=== PATIENT | male | born 1960 | race Caucasian/White ===

== ENCOUNTER 2021-04-01 06:21 | Emergency (ER) | payer BC ==
[2021-04-01 06:35] VITALS: BP 152/91; PULSE 101
--- NOTE | 2021-04-01 07:00 | EDM.PDOC ---
ED HPI GENERAL MEDICAL PROBLEM - General Chief Complaint: Gastrointestinal Problem Stated Complaint: BLEEDING FROM BACK SIDE Time Seen by Provider: 04/01/21 06:59 Source of Information: Reports: Patient History Limitations: Reports: No Limitations - History of Present Illness INITIAL COMMENTS - FREE TEXT/NARRATIVE: 61-year-old male presents to the ED with acute onset of rectal bleeding which was bright red in nature. This occurred after passage of a fairly hard formed stool. No pain was encountered with bowel movement this morning. However there was blood dripping into the toilet as well as blood on wiping. He states about 5 years ago he had a similar occurrence and was told that he had a nonspecific colitis of the bowel. He is not been bothered by anything like that since. Patient takes a baby aspirin daily. No previous rectal surgery. No previous abdominal surgery. He states he was nauseated for a bit this morning but not now. Denies any abdominal cramping pain. Patient reports he has had a colonoscopy many years ago. He thinks perhaps 8 to 10 years ago. Encouraged to seek out a physician to perform a colonoscopy at sometime in the near future. Onset: Today, Sudden Onset Date: 04/01/21 Onset Time: 05:00 Duration: Minutes:, Other (solitary occurrence ) Location: Reports: Other (rectal bleeding) Quality: Reports: Other (acute rectal bleeding ) Severity: Moderate Improves with: Reports: Other (seems to have stopped at this time. ) Worsens with: Reports: None, Other (occurred after a bowl movment that washardto pass this am. ) Context: Denies: Activity, Exercise, Lifting Associated Symptoms: Reports: No Other Symptoms Treatments CLINICAL DATA MANAGEMENT MANAGER: Reports: Other (see below) (none) - Related Data Allergies Allergy/AdvReac Type Severity Reaction Status Date / Time No Known Allergies Allergy Verified 04/01/21 06:35 Home Meds: Home Meds Lisinopril 10 mg PO DAILY 03/21/14 [History] Aspirin 325 mg PO DAILY 09/18/15 [History] Hydrocortisone Acetate [Anusol-Hc] 25 mg RC DAILY #6 supp.rect 04/01/21 [Rx] metFORMIN [Glucophage] 500 mg PO DAILY 04/01/21 [History] Past Medical History - Past Health History Medical/Surgical History: Denies Medical/Surgical History HEENT History: Reports: None Cardiovascular History: Reports: Hypertension Respiratory History: Reports: COPD Gastrointestinal History: Reports: Other (See Below) Other Gastrointestinal History: Cholitis Genitourinary History: Reports: None Musculoskeletal History: Reports: None Neurological History: Reports: None Psychiatric History: Reports: None Endocrine/Metabolic History: Reports: Diabetes, Type I, Obesity/BMI 30+ Hematologic History: Reports: None Immunologic History: Reports: None Oncologic (Cancer) History: Reports: None Dermatologic History: Reports: None - Infectious Disease History Infectious Disease History: Reports: None, Other (See Below) Other Infectious Disease History: unaware of having these illnesses - Past Surgical History Head Surgeries/Procedures: Reports: None Other HEENT Surgeries/Procedures: dental extractions GI Surgical History: Reports: Colonoscopy Social & Family History - Family History Family Medical History: No Pertinent Family History - Tobacco Use Tobacco Use Status *Q: Current Every Day Tobacco User Years of Tobacco use: 40 Packs/Tins Daily: 1 - Caffeine Use Caffeine Use: Reports: Coffee - Recreational Drug Use Recreational Drug Use: No - Living Situation & Occupation Living situation: Reports: Occupation: Employed ED ROS GENERAL - Review of Systems Review Of Systems: See Below Constitutional: Reports: No Symptoms HEENT: Reports: No Symptoms Respiratory: Reports: No Symptoms Cardiovascular: Reports: Blood Pressure Problem Endocrine: Reports: No Symptoms GI/Abdominal: Reports: Hematochezia, Nausea (transient nausea this am.), Other (told he had non seceficcolitis about 5 years ago.) : Reports: Frequency, Other (nocturia x 2 ) Musculoskeletal: Reports: Joint Pain (arthritis knees and hips and low back) Skin: Reports: No Symptoms Neurological: Reports: No Symptoms Psychiatric: Reports: No Symptoms Hematologic/Lymphatic: Reports: No Symptoms ED EXAM, GI/ABD - Physical Exam Exam: See Below Exam Limited By: No Limitations General Appearance: Alert, WD/WN, No Apparent Distress, Other (Temperature is 35.9 degrees with a heart rate of 101 and sinus. Respiratory is 18 with O2 sats of 94% room air. BP 1 5291.) Eyes: Bilateral: Normal Appearance (No blepharal pallor or scleral icterus.) Throat/Mouth: Normal Inspection, Normal Lips, Normal Oropharynx, Other (Tongue is mildly dry.) Respiratory/Chest: No Respiratory Distress, Lungs Clear, Normal Breath Sounds, No Accessory Muscle Use Cardiovascular: Normal Peripheral Pulses, Regular Rate, Rhythm, No Edema, No Gallop, No Rub GI/Abdominal Exam: Normal Bowel Sounds, Soft, Non-Tender, No Organomegaly, No Distention, No Abnormal Bruit, No Mass, Pelvis Stable, Hernia, Other (Mildly obese.). No: Guarding, Rigid, Rebound, Tender Back Exam: Normal Inspection, Full Range of Motion. No: CVA Tenderness (L), CVA Tenderness (R) Extremities: Normal Inspection, Normal Range of Motion, Non-Tender, No Pedal Edema Neurological: Alert, Oriented, CN II-XII Intact, Normal Cognition Psychiatric: Normal Affect, Normal Mood Skin Exam: Warm, Dry, Intact, Normal Color, No Rash ED ABDOMINAL/GI PROCEDURES - Additional/Other Procedure(s) Procedure(s) (Free Text): Rigid sigmoidoscopy done up to 18 cm. Patient tolerated the procedure well. The anal mucosa that was visualized showed no ulcerations or active bleeding up to 18 cm. No melena stool encountered. No stool encountered at all. Bowel wall appears healthy without any ulcerations. The only finding was an anal fissure at the 6 o'clock position on the internal anal verge. No internal hemorrhoids were identified. No external hemorrhoidal tags identified. Treatment will be hydrocortisone HC suppositories 1 at bedtime for the next 6 days. His stools tend to be firm and hard most of the time. Suggest MiraLAX powder 17 g or 1 scoop daily with beverage of choice to prevent constipation from occurring. Course - Vital Signs Last Recorded V/S: Last Vital Signs Temp 35.9 C L 04/01/21 06:30 Pulse 101 H 04/01/21 06:30 Resp 18 04/01/21 06:30 BP 152/91 H 04/01/21 06:30 Pulse Ox 93 L 04/01/21 06:30 - Orders/Labs/Meds Meds: Medications Discontinued Medications Generic Name Dose Route Start Last Admin Trade Name Freq PRN Reason Stop Dose Admin Lidocaine HCl 10 ml 04/01/21 07:07 04/01/21 07:19 Lidocaine 2% Jelly 10 Ml Urojet MUCMEM 04/01/21 07:08 10 ml ONETIME ONE Administration - Radiology Interpretation Free Text/Narrative:: 61-year-old male presents to the ED with acute onset of rectal bleeding this morning that was bright red in color. Associated with the passage of a constipated stool. He knows he has hemorrhoids. Fairly significant bleeding this morning with dripping into the toilet bowl as well as bright red blood with wiping. Denies pain with a bowel movement. 5 years ago he had a similar occurrence and was told he had a colitis. He is not been bothered by any similar symptoms since that time. On examination he does not appear anemic. Vital signs are otherwise stable. Plan rigid sigmoidoscopy to be done to clarify source of bleeding. - Re-Assessments/Exams Free Text/Narrative Re-Assessment/Exam: 04/01/21 07:38 rigid sigmoidoscopy completed up to 18 cm. Only positive finding was an anal fissure at the internal verge of the anus at 6 o'clock position. Patient be treated with Anusol HC suppositories 1 per rectum at bedtime for the next 6 days. We will soften up his stools with MiraLAX powder 17 g once daily. He was advised he will have some further rectal bleeding until the fissure h eals over the next couple of days. After that if he has any further bleeding he should have a colonoscopy asit has is been multiple years since he has had one.. Departure - Departure Time of Disposition: 07:33 Disposition: Home, Self-Care 01 Condition: Fair Clinical Impression: Rectal bleeding, Anal fissure, unspecified - Discharge Information *PRESCRIPTION DRUG MONITORING PROGRAM REVIEWED*: Not Applicable *COPY OF PRESCRIPTION DRUG MONITORING REPORT IN PATIENT YADI: Not Applicable Prescriptions: Hydrocortisone Acetate [Anusol-Hc] 25 mg RC DAILY #6 supp.rect Instructions: Rectal Bleeding Referrals: Alecia Gaviria MD [Primary Care Provider] - Forms: ED Department Discharge Additional Instructions: Evaluation in the emergency room this morning in regards to development of acute rectal bleeding after a bowel movement this morning that was fairly hard to pass. As you indicated stools have been more on the constipated side I hard more difficult to pass the last few weeks. Sigmoidoscopy done up to 18 cm reveals no abnormalities within the colon itself. No tumors or ulcerations identified. Only positive finding was an anal fissure at the 6 o'clock position on the internal aspect of the anal canal. Bowel movement causes this to tear op en and produces the rectal bleeding. You were like to have further bleeding over the next few days until we can get it healed up. Treatment is to things. Keeping the stool soft. Drinking plenty of water will help. Suggest use of MiraLAX powder 17 g or 1 scoop daily with beverage of choice, for the next 14 days to allow the stools to soften up. Second medication is Anusol [place] cortisone suppositories 1 at bedtime for the next 6 days to allow the anal fissure to heal. If bleeding occurs after this then I would recommend follow-up with a surgeon or grocery clerk stocking to perform his colonoscopy to explore the entire colon. Sepsis Event Note (ED) - Evaluation Sepsis Screening Result: No Definite Risk - Focused Exam Vital Signs: Vital Signs Temp Pulse Resp BP Pulse Ox 04/01/21 06:30 35.9 C L 101 H 18 152/91 H 93 L
[2021-04-01] MEDS ORDERED: Lidocaine 2% Jelly 10 ML Urojet MUCMEM ONE (07:07)
== END 2021-04-01 07:43 | disposition home or self-care (01) ==
LOC: JD.ED 06:21
DX: K62.5 Hemorrhage of anus and rectum (principal); K60.3 Anal fistula; I10 Essential (primary) hypertension; J44.9 Chronic obstructive pulmonary disease, unspecified; E10.9 Type 1 diabetes mellitus without complications; E66.9 Obesity, unspecified; Z68.30 Body mass index [BMI] 30.0-30.9, adult; Z72.0 Tobacco use; Z79.82 Long term (current) use of aspirin; Z79.899 Other long term (current) drug therapy
CPT/HCPCS: 45300; 99283

== ENCOUNTER 2021-06-25 07:35 | Day surgery (SDC) | payer BC ==
[~2021-06-25 07:35] MED LIST: Lactated Ringers 1,000 ML IV SCH; Lidocaine 1%/Sod Bicarbonate in NS 8.4% 1 ML Syringe IDERM PRN; Sodium Chloride 0.9% 10 ML Syringe FLUSH PRN
[2021-06-25] MEDS ORDERED: Propofol 200 MG/20 ML SDV ONE (07:46)
[2021-06-25] MEDS ORDERED: fentaNYL 100 MCG/2 ML SDV ONE (07:47)
[2021-06-25] MEDS ORDERED: Albuterol 0.083% 2.5 MG/3 ML Neb Soln NEB ONE (07:49)
--- NOTE | 2021-06-25 07:49 | PCM.PREANE ---
Preanesthetic Assessment - Procedure Proposed Procedure: Colonoscopy - Anesthesia/Transfusion/Family Hx Anesthesia History: No Prior Anesthesia Family History of Anesthesia Reaction: No Transfusion History: No Prior Transfusion(s) Intubation History: Unknown - Review of Systems General: No Symptoms Pulmonary: Wheezing, Cough (Chronic smoker cough) Cardiovascular: No Symptoms Gastrointestinal: Constipation, Hematochezia (Not within a few weeks) Neurological: No Symptoms Other: Reports: Diabetes - Physical Assessment NPO Status Date: 06/24/21 NPO Status Time: 20:00 Vital Signs: BP 139/86 HR 100 RR 20 97.4 20 Height: 1.78 m Weight: 92.5 kg ASA Class: 2 Mental Status: Alert & Oriented x3 Thyro-Mental Finger Breadths: 3 Mouth Opening Finger Breadths: 3 ROM/Head Extension: Full Lungs: Normal Respiratory Effort, Wheezing Cardiovascular: Regular Rate, Regular Rhythm, No Murmurs - Imaging/EKG Impressions: 05/28/21: NSR HR 94 - Allergies Allergies/Adverse Reactions: Allergies Allergy/AdvReac Type Severity Reaction Status Date / Time No Known Allergies Allergy Verified 06/24/21 18:48 - Blood Blood Available: No Product(s) Available: None - Anesthesia Plan Pre-Op Medication Ordered: Other (Albuterol) - Acknowledgements Anesthesia Type Planned: MAC Pt an Appropriate Candidate for the Planned Anesthesia: Yes Alternatives and Risks of Anesthesia Discussed w Pt/Guardian: Yes Pt/Guardian Understands and Agrees with Anesthesia Plan: Yes PreAnesthesia Questionnaire - Past Health History Medical/Surgical History: Denies Medical/Surgical History HEENT History: Reports: Impaired Vision, Other (See Below) Other HEENT History: wears glasses Cardiovascular History: Reports: Hypertension Respiratory History: Reports: COPD Gastrointestinal History: Reports: Chronic Constipation, Other (See Below) Other Gastrointestinal History: Cholitis Genitourinary History: Reports: None DIPLOMA DENTAL ASSISTANT History: Reports: None Musculoskeletal History: Reports: None Neurological History: Reports: Other (See Below) Other Neuro History: 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 He went into the [facility] and was told he was not amendable for surgery. He has not had any symptoms since 2015 with this episode. He was started on aspirin during this time. Psychiatric History: Reports: None Endocrine/Metabolic History: Reports: Diabetes, Type II, Obesity/BMI 30+ Hematologic History: Reports: None Immunologic History: Reports: None Oncologic (Cancer) History: Reports: None Dermatologic History: Reports: None - Infectious Disease History Infectious Disease History: Reports: None, Other (See Below) Other Infectious Disease History: unaware of having these illnesses - Past Surgical History Head Surgeries/Procedures: Reports: None Other HEENT Surgeries/Procedures: dental extractions Cardiovascular Surgical History: Reports: None Respiratory Surgical History: Reports: None GI Surgical History: Reports: Colonoscopy Female Surgical History: Reports: None Male Surgical History: Reports: None Endocrine Surgical History: Reports: None Neurological Surgical History: Reports: None Musculoskeletal Surgical History: Reports: None Oncologic Surgical History: Reports: None Dermatological Surgical History: Reports: None - SUBSTANCE USE Tobacco Use Status *Q: Current Every Day Tobacco User Tobacco Use Within Last Twelve Months: Cigarettes Second Hand Smoke Exposure: No Days Per Week of Alcohol Use: 7 Number of Drinks Per Day: 1 Total Drinks Per Week: 7 Recreational Drug Use History: No - HOME MEDS Home Medications: Home Meds Aspirin 325 mg PO DAILY 09/18/15 [History] metFORMIN [Glucophage] 500 mg PO DAILY 04/01/21 [History] Albuterol Sulfate [Albuterol Sulfate HFA] 2 puff INH TID PRN 06/24/21 [History] Ascorbate Calcium [Vitamin C] 500 mg PO DAILY 06/24/21 [History] Budesonide/Formoterol Fumarate [Symbicort 160-4.5 Mcg Inhaler] 1 puff INH DAILY PRN 06/24/21 [History] Linaclotide [Linzess] 145 mcg PO DAILY 06/24/21 [History] Rosuvastatin [Crestor] 5 mg PO DAILY 06/24/21 [History] Sildenafil Citrate [Viagra] 50 mg PO ASDIRECTED PRN 06/24/21 [History] guaiFENesin [Mucinex] 600 mg PO Q12H PRN 06/24/21 [History] lisinopriL [Lisinopril] 5 mg PO DAILY 06/24/21 [History] - CURRENT (IN HOUSE) MEDS Current Meds: Current Medications Lactated Ringer's (Ringers, Lactated) 1,000 mls @ 125 mls/hr IV ASDIRECTED AMINAH Stop: 06/25/21 23:00 Lidocaine/Sodium Bicarbonate (Lidocaine 1%/Sod Bicarbonate In Ns 8.4% 1 Ml Syringe) 0.25 ml IDERM ONETIME PRN PRN Reason: Prior to IV Start Stop: 06/25/21 18:00 Sodium Chloride (Sodium Chloride 0.9% 10 Ml Syringe) 10 ml FLUSH ASDIRECTED PRN PRN Reason: Keep Vein Open Stop: 06/25/21 18:00
[2021-06-25] MEDS ORDERED: Lactated Ringers 1,000 ML ONE (09:06)
--- NOTE | 2021-06-25 09:28 | PCM.OPNOTE ---
- General Post-Op/Procedure Note Date of Surgery/Procedure: 06/25/21 Operative Procedure(s): Colonoscopy with hot snare polypectomy Findings: #1 Grade 1 internal hemorrhoids #2 anal stenosis #3 healed anal fissure #4 5 mm distal sigmoid polyp Pre Op Diagnosis: Hematochezia, constipation Post-Op Diagnosis: 1. Anal stenosis #2 grade 1 internal hemorrhoids #3 5 mm distal sigmoid polyp #4 healed anal fissure Anesthesia Technique: MAC Primary Surgeon: Florin Camacho Anesthesia Provider: Rochelle Gonzales EBL in mLs: 5 Complications: None Condition: Good Free Text/Narrative:: After the patient gave verbal and written consent he was placed on blood pressure and pulse ox monitoring. He was given IV sedation which he tolerated well. The Olympus colonoscope was inserted per rectum and advanced to the cecum without difficulty. The ileocecal valve and appendiceal orifice were imaged documenting cecal intubation. The colonoscope was slowly withdrawn. The prep was moderate. The views were good. A little bit of residual stool had to be aspirated to achieve mucosal views. The colonoscope was slowly withdrawn and the mucosal surfaces were carefully examined. Haustral hypertrophy was noted in the sigmoid colon. A 5 mm distal sigmoid polyp was removed with hot snare polypectomy and there was good hemostasis at the end of the procedure. The colonoscope was retroflexed in the rectum and grade 1 internal hemorrhoids were noted. A perianal examination noted a healed posterior anal fissure and anal stenosis. The patient Left the procedure room in good condition and there were no complications.
--- NOTE | 2021-06-25 09:35 | PCM48HPAN ---
Post Anesthesia Note - EVALUATION WITHIN 48HRS OF ANESTHETIC Vital Signs in Normal Range: Yes Patient Participated in Evaluation: Yes Respiratory Function Stable: Yes Airway Patent: Yes Cardiovascular Function Stable: Yes Hydration Status Stable: Yes Pain Control Satisfactory: Yes Nausea and Vomiting Control Satisfactory: Yes Mental Status Recovered: Yes Vital Signs: Last Vital Signs Temp 97.5 06/25/21926 Pulse 86 06/25/21926 Resp 12 06/25/21926 BP 118/70 06/25/21926 Pulse Ox 91% 06/25/21926
[2021-06-25 10:47] VITALS: BP 129/76; PULSE 85
== END 2021-06-25 10:15 | disposition home or self-care (01) ==
LOC: JD.SDS 07:35
PROVIDERS: ATTEND Family Medicine
DX: D12.5 Benign neoplasm of sigmoid colon (principal); K64.0 First degree hemorrhoids; K62.4 Stenosis of anus and rectum; K59.00 Constipation, unspecified; K59.09 Other constipation; E11.9 Type 2 diabetes mellitus without complications; I10 Essential (primary) hypertension; F17.210 Nicotine dependence, cigarettes, uncomplicated; Z01.812 Encounter for preprocedural laboratory examination; Z79.899 Other long term (current) drug therapy; Z20.822 Contact with and (suspected) exposure to COVID-19
CPT/HCPCS: 45385; 82947; 87635; J2704; J3010; J7120; 00811; U0002

== ENCOUNTER 2022-09-13 16:59 | Inpatient (IN) | payer BC ==
[2022-09-13] MEDS ORDERED: Sodium Chloride 0.9% 10 ML Syringe FLUSH PRN (17:31)
[2022-09-13] MEDS ORDERED: Albuterol/Ipratropium 3.0-0.5 MG/3 ML Neb Soln NEB ONE ×2 (17:32→18:26)
[2022-09-13] MEDS ORDERED: methylPREDNISolone Sodium Succinate 125 MG/2 ML SDV IVPUSH ONE (17:32)
[2022-09-13 19:37] LABS: CORONAVIRUS COVID-19 NAA NEGATIVE (NEGATIVE)
[2022-09-13] MEDS ORDERED: cefTRIAXone 2 GM in Sodium Chloride 0.9% 100 ML IV ONE (20:33)
[2022-09-13] MEDS ORDERED: Sodium Chloride 0.9% 1,000 ML ONE (22:55)
[2022-09-13] MEDS: Sodium Chloride 0.9% 1,000 ML IV SCH (23:00)
[2022-09-14] MEDS ORDERED: Albuterol/Ipratropium 3.0-0.5 MG/3 ML Neb Soln NEB SCH
[2022-09-14] MEDS: Albuterol/Ipratropium 3.0-0.5 MG/3 ML Neb Soln NEB SCH ×5 (03:34→20:10)
[2022-09-14] MEDS ORDERED: methylPREDNISolone Sodium Succinate 125 MG/2 ML SDV IVPUSH ONE (09:00)
[2022-09-14] MEDS: Sodium Chloride 0.9% 1,000 ML IV SCH (14:39)
[2022-09-15] MEDS: Albuterol/Ipratropium 3.0-0.5 MG/3 ML Neb Soln NEB SCH (00:14)
[2022-09-15] MEDS ORDERED: Albuterol/Ipratropium 3.0-0.5 MG/3 ML Neb Soln NEB PRN (04:00)
[2022-09-15] MEDS: Sodium Chloride 0.9% 1,000 ML IV SCH (04:13)
[2022-09-15 08:10] VITALS: BP 129/99
[2022-09-15] MEDS ORDERED: predniSONE 20 MG Tab PO SCH (09:00)
[2022-09-15 09:34] VITALS: PULSE 81
[2022-09-15] MEDS ORDERED: Albuterol/Ipratropium 3.0-0.5 MG/3 ML Neb Soln NEB SCH (21:00)
== END 2022-09-15 12:48 | disposition home or self-care (01) | DRG 140 ==
LOC: JD.ED 16:59 → JD.MS 22:20
PROVIDERS: ADMIT Pediatrics; ATTEND Internal Medicine
DX: J44.1 Chronic obstructive pulmonary disease with (acute) exacerbation (principal); I10 Essential (primary) hypertension; J21.0 Acute bronchiolitis due to respiratory syncytial virus; K21.9 Gastro-esophageal reflux disease without esophagitis; K52.9 Noninfective gastroenteritis and colitis, unspecified; Z20.822 Contact with and (suspected) exposure to COVID-19; F17.210 Nicotine dependence, cigarettes, uncomplicated; E11.9 Type 2 diabetes mellitus without complications; M19.90 Unspecified osteoarthritis, unspecified site; E66.9 Obesity, unspecified; H54.7 Unspecified visual loss; K59.09 Other constipation; Z79.82 Long term (current) use of aspirin; Z79.52 Long term (current) use of systemic steroids; Z79.84 Long term (current) use of oral hypoglycemic drugs; Z79.899 Other long term (current) drug therapy; Z68.29 Body mass index [BMI] 29.0-29.9, adult
CPT/HCPCS: 0241U; 36415; 71045; 71045-26; 80053; 83605; 85025; 86140; 87040; 94640; 94667; 94668; 94760; 94761; 96365; 96375; 99285-25; J0696; J2930; J3490; J7030; J7512; J7620-GY

== ENCOUNTER 2023-01-12 01:36 | Emergency (ER) | payer BC ==
[2023-01-12 01:50] VITALS: BP 155/82; PULSE 102
[2023-01-12] MEDS ORDERED: Albuterol/Ipratropium 3.0-0.5 MG/3 ML Neb Soln NEB ONE (02:22)
[2023-01-12 02:33] LABS: CORONAVIRUS COVID-19 NAA NEGATIVE (NEGATIVE)
[2023-01-12] MEDS ORDERED: predniSONE 20 MG Tab PO STA (05:33)
== END 2023-01-12 09:40 | disposition home or self-care (01) ==
LOC: JD.ED 01:36
DX: J44.1 Chronic obstructive pulmonary disease with (acute) exacerbation (principal); I10 Essential (primary) hypertension; E11.9 Type 2 diabetes mellitus without complications; E66.9 Obesity, unspecified; Z68.29 Body mass index [BMI] 29.0-29.9, adult; Z79.82 Long term (current) use of aspirin; Z79.84 Long term (current) use of oral hypoglycemic drugs; Z79.899 Other long term (current) drug therapy; Z72.0 Tobacco use
CPT/HCPCS: 0241U; 36415; 36600; 71046; 80053; 82803; 83605; 83880; 84484; 85007; 85027; 85379; 85610; 85730; 87040; 93005; 94640; 99284; J7512; 93010; 99283; J7620-GY

== ENCOUNTER 2023-06-28 12:55 | Emergency (ER) | payer BC ==
[2023-06-28] MEDS ORDERED: Albuterol/Ipratropium 3.0-0.5 MG/3 ML Neb Soln NEB ONE (13:40)
[2023-06-28] MEDS ORDERED: methylPREDNISolone Sodium Succinate 125 MG/2 ML SDV IVPUSH ONE (13:41)
[2023-06-28] MEDS ORDERED: Sodium Chloride 0.9% 10 ML Syringe FLUSH PRN (13:41)
[2023-06-28 14:21] LABS: BASOPHILS ABSOLUTE AUTO 0.1 K/mm3 (0.0-0.2); BASOPHILS PERCENT AUTO 0.6 % (0.0-1.0); EOSINOPHILS ABSOLUTE AUTO 0.2 K/mm3 (0.0-0.4); EOSINOPHILS PERCENT AUTO 1.1 % (0.0-6.0); HEMATOCRIT 52.8 % (42.0-52.0); HEMOGLOBIN 16.8 gm/dl (14.0-18.0); IMMATURE GRAN ABSOLUTE AUTO 0.06 K/mm3 (0.00-0.05); IMMATURE GRAN PERCENT AUTO 0.4 % (0.0-0.4); LYMPHOCYTES PERCENT AUTO 6.8 % (24.0-44.0); MEAN CORPUSCULAR HEMOGLOBIN 27.3 pg (28.0-32.0); MEAN CORPUSCULAR HGB CONC 31.8 g/dl (32.0-36.0); MEAN CORPUSCULAR VOLUME 85.7 fl (83.0-99.0); MEAN PLATELET VOLUME 9.3 fl (9.4-12.4); MONOCYTES ABSOLUTE AUTO 1.2 K/mm3 (0.0-0.8); MONOCYTES PERCENT AUTO 8.4 % (0.0-8.0); NEUTROPHILS ABSOLUTE AUTO 11.8 K/mm3 (1.8-7.7); NEUTROPHILS PERCENT AUTO 82.7 % (41.0-71.0); PLATELET COUNT,PLT 222 K/mm3 (150-400); RED BLOOD CELL COUNT 6.16 M/mm3 (4.52-5.90); WHITE BLOOD CELL COUNT,WBC 14.32 K/mm3 (3.9-11.3)
[2023-06-28 14:47] LABS: A/G RATIO 0.9 (1-2); ALBUMIN 3.6 g/dl (3.4-5.0); ANION GAP 12.1 (5-15); BILIRUBIN TOTAL 0.5 mg/dL (0.2-1.0); BUN/CREATININE RATIO 11.3 (14-18); CALCIUM 8.7 mg/dL (8.5-10.1); CREATININE 0.8 mg/dL (0.7-1.3); EST CRCL DRUG DOSING (CG) 96.32 mL/min; POTASSIUM,K 4.1 mEq/L (3.5-5.1); PROTEIN TOTAL,TP 7.6 g/dl (6.4-8.2)
[2023-06-28 14:48] LABS: C-REACTIVE PROTEIN 13.5 mg/dL (<1.0)
[2023-06-28 14:57] LABS: CORONAVIRUS COVID-19 NAA NEGATIVE (NEGATIVE); INFLUENZA A NAA NEGATIVE (NEGATIVE); RESPIRATORY SYNCYTIAL VIR NAA NEGATIVE (NEGATIVE)
[2023-06-28] MEDS ORDERED: Levofloxacin 500 MG Tab PO ONE (15:08)
[2023-06-28 17:51] VITALS: BP 125/62; PULSE 94
== END 2023-06-28 15:22 | disposition home or self-care (01) ==
LOC: JD.ED 12:55
DX: J44.1 Chronic obstructive pulmonary disease with (acute) exacerbation (principal); E11.9 Type 2 diabetes mellitus without complications; E66.9 Obesity, unspecified; Z20.822 Contact with and (suspected) exposure to COVID-19; Z86.16 Personal history of COVID-19; Z79.899 Other long term (current) drug therapy; Z79.84 Long term (current) use of oral hypoglycemic drugs
CPT/HCPCS: 0241U; 36415; 71046; 80053; 83880; 85025; 86140; 94640; 96374; 99285; A9270; J2930; J3490; 99284; J7620-GY

== ENCOUNTER 2024-04-10 11:15 | Emergency (ER) | payer BC ==
[2024-04-10] MEDS: Albuterol/Ipratropium 3.0-0.5 MG/3 ML Neb Soln NEB ONE ×2 (11:47→12:23)
[2024-04-10 11:48] LABS: BASOPHILS ABSOLUTE AUTO 0.2 K/mm3 (0.0-0.2); BASOPHILS PERCENT AUTO 1.3 % (0.0-1.0); EOSINOPHILS ABSOLUTE AUTO 0.9 K/mm3 (0.0-0.4); EOSINOPHILS PERCENT AUTO 7.6 % (0.0-6.0); HEMATOCRIT 54.2 % (42.0-52.0); HEMOGLOBIN 16.6 gm/dl (14.0-18.0); IMMATURE GRAN ABSOLUTE AUTO 0.03 K/mm3 (0.00-0.05); IMMATURE GRAN PERCENT AUTO 0.3 % (0.0-0.4); LYMPHOCYTES ABSOLUTE AUTO 1.9 K/mm3 (1.0-4.8); LYMPHOCYTES PERCENT AUTO 16.2 % (24.0-44.0); MEAN CORPUSCULAR HEMOGLOBIN 26.2 pg (28.0-32.0); MEAN CORPUSCULAR HGB CONC 30.6 g/dl (32.0-36.0); MEAN CORPUSCULAR VOLUME 85.5 fl (83.0-99.0); MEAN PLATELET VOLUME 9.7 fl (9.4-12.4); MONOCYTES ABSOLUTE AUTO 0.8 K/mm3 (0.0-0.8); MONOCYTES PERCENT AUTO 6.7 % (0.0-8.0); NEUTROPHILS PERCENT AUTO 67.9 % (41.0-71.0); PLATELET COUNT,PLT 271 K/mm3 (150-400); RED BLOOD CELL COUNT 6.34 M/mm3 (4.52-5.90); WHITE BLOOD CELL COUNT,WBC 11.76 K/mm3 (3.9-11.3)
[2024-04-10] MEDS: methylPREDNISolone Sodium Succinate 125 MG/2 ML SDV IVPUSH ONE (11:51)
[2024-04-10] MEDS: Sodium Chloride 0.9% 10 ML Syringe FLUSH PRN (11:51)
[2024-04-10 12:15] LABS: A/G RATIO 1.1 (1-2); ALANINE AMINOTRANSFERASE,ALT 21 U/L (16-63); ALBUMIN 3.8 g/dl (3.4-5.0); ALKALINE PHOSPHATASE 99 U/L (46-116); ANION GAP 10.4 (5-15); ASPARTATE AMNIOTRANSFERASE,AST 13 U/L (15-37); BILIRUBIN TOTAL 0.4 mg/dL (0.2-1.0); BLOOD UREA NITROGEN,BUN 9 mg/dL (7-18); CARBON DIOXIDE,CO2 33 mEq/L (21-32); CHLORIDE,CL 100 mEq/L (98-107); CREATININE 0.9 mg/dL (0.7-1.3); EST CRCL DRUG DOSING (CG) 84.49 mL/min; ESTIMATED GFR 95 mL/min (>60); GLUCOSE RANDOM 173 mg/dL (70-99); POTASSIUM,K 4.4 mEq/L (3.5-5.1); PROTEIN TOTAL,TP 7.3 g/dl (6.4-8.2); SODIUM,NA 139 mEq/L (136-145)
[2024-04-10 12:16] LABS: TROPONIN I HIGH SENSITIVITY < 4 pg/mL (<=76)
[2024-04-10 13:21] VITALS: PULSE 90
[2024-04-10] MEDS ORDERED: Amoxicillin/Clavulanate K 875-125 MG Tab PO ONE (13:47)
[2024-04-10 15:30] VITALS: BP 147/81
== END 2024-04-10 15:28 | disposition home or self-care (01) ==
LOC: JD.ED 11:15
DX: J44.1 Chronic obstructive pulmonary disease with (acute) exacerbation (principal); I10 Essential (primary) hypertension; E78.00 Pure hypercholesterolemia, unspecified; E11.9 Type 2 diabetes mellitus without complications; Z79.899 Other long term (current) drug therapy; Z86.16 Personal history of COVID-19; Z87.891 Personal history of nicotine dependence; Z79.84 Long term (current) use of oral hypoglycemic drugs
CPT/HCPCS: 36415; 71046; 71046-26; 80053; 84484; 85025; 85379; 86140; 93005; 93010; 94640; 96374; 99284; 99285-25; J2919; J3490; J7620-GY

== ENCOUNTER 2024-05-05 00:18 | Emergency (ER) | payer BC ==
[2024-05-05] MEDS: methylPREDNISolone Sodium Succinate 125 MG/2 ML SDV IVPUSH ONE (01:51)
[2024-05-05] MEDS: Sodium Chloride 0.9% 10 ML Syringe FLUSH PRN (01:53)
[2024-05-05] MEDS: Albuterol/Ipratropium 3.0-0.5 MG/3 ML Neb Soln NEB SCH (01:55)
[2024-05-05 01:56] LABS: BASOPHILS PERCENT AUTO 0.2 % (0.0-1.0); EOSINOPHILS ABSOLUTE AUTO 1.7 K/mm3 (0.0-0.4); EOSINOPHILS PERCENT AUTO 15.4 % (0.0-6.0); IMMATURE GRAN ABSOLUTE AUTO 0.01 K/mm3 (0.00-0.05); IMMATURE GRAN PERCENT AUTO 0.1 % (0.0-0.4); LYMPHOCYTES ABSOLUTE AUTO 1.3 K/mm3 (1.0-4.8); LYMPHOCYTES PERCENT AUTO 11.5 % (24.0-44.0); MEAN CORPUSCULAR HEMOGLOBIN 26.2 pg (28.0-32.0); MEAN CORPUSCULAR HGB CONC 30.9 g/dl (32.0-36.0); MEAN CORPUSCULAR VOLUME 84.6 fl (83.0-99.0); MEAN PLATELET VOLUME 9.5 fl (9.4-12.4); MONOCYTES ABSOLUTE AUTO 0.6 K/mm3 (0.0-0.8); MONOCYTES PERCENT AUTO 5.6 % (0.0-8.0); NEUTROPHILS ABSOLUTE AUTO 7.4 K/mm3 (1.8-7.7); NEUTROPHILS PERCENT AUTO 67.2 % (41.0-71.0); PLATELET COUNT,PLT 245 K/mm3 (150-400)
[2024-05-05 02:37] LABS: A/G RATIO 1.1 (1-2); ALANINE AMINOTRANSFERASE,ALT 19 U/L (16-63); ALBUMIN 3.7 g/dl (3.4-5.0); ALKALINE PHOSPHATASE 98 U/L (46-116); ANION GAP 12.2 (5-15); ASPARTATE AMNIOTRANSFERASE,AST 11 U/L (15-37); BILIRUBIN TOTAL 0.6 mg/dL (0.2-1.0); BLOOD UREA NITROGEN,BUN 11 mg/dL (7-18); CALCIUM 8.9 mg/dL (8.5-10.1); CARBON DIOXIDE,CO2 29 mEq/L (21-32); CHLORIDE,CL 101 mEq/L (98-107); ESTIMATED GFR 84 mL/min (>60); GLUCOSE RANDOM 129 mg/dL (70-99); POTASSIUM,K 4.2 mEq/L (3.5-5.1); PROTEIN TOTAL,TP 7.2 g/dl (6.4-8.2); SODIUM,NA 138 mEq/L (136-145); TROPONIN I HIGH SENSITIVITY 4 pg/mL (<=76)
[2024-05-05 03:27] LABS: CORONAVIRUS COVID-19 NAA NEGATIVE (NEGATIVE); INFLUENZA A NAA NEGATIVE (NEGATIVE); RESPIRATORY SYNCYTIAL VIR NAA NEGATIVE (NEGATIVE)
[2024-05-05] MEDS: Albuterol 0.083% 2.5 MG/3 ML Neb Soln NEB ONE (05:31)
[2024-05-05 06:41] VITALS: BP 130/85; PULSE 88
== END 2024-05-05 06:42 | disposition home or self-care (01) ==
LOC: JD.ED 00:18
DX: J44.1 Chronic obstructive pulmonary disease with (acute) exacerbation (principal); R05.9 Cough, unspecified; R06.02 Shortness of breath; E78.00 Pure hypercholesterolemia, unspecified; I10 Essential (primary) hypertension; M19.90 Unspecified osteoarthritis, unspecified site; E11.9 Type 2 diabetes mellitus without complications; Z86.16 Personal history of COVID-19; Z79.82 Long term (current) use of aspirin; Z79.84 Long term (current) use of oral hypoglycemic drugs
CPT/HCPCS: 0241U; 36415; 71045; 80053; 83880; 84484; 85025; 93005; 94640; 96374; 99285; J2919; J3490; J7620-GY

== ENCOUNTER 2024-06-03 14:15 | Emergency (ER) | payer BC ==
[2024-06-03 14:44] VITALS: BP 140/84; PULSE 88
[2024-06-03] MEDS: Lactated Ringers 1,000 ML IV SCH (14:59)
[2024-06-03 15:06] LABS: BASOPHILS ABSOLUTE AUTO 0.1 K/mm3 (0.0-0.2); BASOPHILS PERCENT AUTO 0.7 % (0.0-1.0); EOSINOPHILS ABSOLUTE AUTO 0.9 K/mm3 (0.0-0.4); EOSINOPHILS PERCENT AUTO 8.1 % (0.0-6.0); HEMATOCRIT 51.8 % (42.0-52.0); HEMOGLOBIN 16.2 gm/dl (14.0-18.0); IMMATURE GRAN ABSOLUTE AUTO 0.05 K/mm3 (0.00-0.05); IMMATURE GRAN PERCENT AUTO 0.4 % (0.0-0.4); LYMPHOCYTES ABSOLUTE AUTO 1.7 K/mm3 (1.0-4.8); LYMPHOCYTES PERCENT AUTO 14.9 % (24.0-44.0); MEAN CORPUSCULAR HEMOGLOBIN 26.2 pg (28.0-32.0); MEAN CORPUSCULAR HGB CONC 31.3 g/dl (32.0-36.0); MEAN CORPUSCULAR VOLUME 83.7 fl (83.0-99.0); MEAN PLATELET VOLUME 9.6 fl (9.4-12.4); MONOCYTES ABSOLUTE AUTO 0.9 K/mm3 (0.0-0.8); MONOCYTES PERCENT AUTO 8.2 % (0.0-8.0); NEUTROPHILS ABSOLUTE AUTO 7.7 K/mm3 (1.8-7.7); NEUTROPHILS PERCENT AUTO 67.7 % (41.0-71.0); PLATELET COUNT,PLT 245 K/mm3 (150-400); RED BLOOD CELL COUNT 6.19 M/mm3 (4.52-5.90); WHITE BLOOD CELL COUNT,WBC 11.44 K/mm3 (3.9-11.3)
[2024-06-03 15:29] LABS: LACTIC ACID 0.6 mmol/L (0.4-2.0)
[2024-06-03 15:35] LABS: ALANINE AMINOTRANSFERASE,ALT 17 U/L (16-63); ALBUMIN 3.6 g/dl (3.4-5.0); ALKALINE PHOSPHATASE 103 U/L (46-116); ANION GAP 9.9 (5-15); ASPARTATE AMNIOTRANSFERASE,AST 11 U/L (15-37); BILIRUBIN TOTAL 0.8 mg/dL (0.2-1.0); BLOOD UREA NITROGEN,BUN 12 mg/dL (7-18); C-REACTIVE PROTEIN 5.48 mg/dL (<0.30); CALCIUM 8.8 mg/dL (8.5-10.1); CARBON DIOXIDE,CO2 33 mEq/L (21-32); CHLORIDE,CL 99 mEq/L (98-107); CREATININE 0.8 mg/dL (0.7-1.3); EST CRCL DRUG DOSING (CG) 95.05 mL/min; ESTIMATED GFR 98 mL/min (>60); GLUCOSE RANDOM 119 mg/dL (70-99); POTASSIUM,K 3.9 mEq/L (3.5-5.1); PROTEIN TOTAL,TP 7.1 g/dl (6.4-8.2); SODIUM,NA 138 mEq/L (136-145)
[2024-06-03 15:42] LABS: TROPONIN I HIGH SENSITIVITY < 4 pg/mL (<=76)
[2024-06-03 15:45] LABS: CORONAVIRUS COVID-19 NAA NEGATIVE (NEGATIVE); INFLUENZA A NAA NEGATIVE (NEGATIVE); RESPIRATORY SYNCYTIAL VIR NAA NEGATIVE (NEGATIVE)
[2024-06-03] MEDS: Dextrose 5%-0.9% NaCl with KCl 1,000 ML IV SCH (17:43)
[2024-06-03] MEDS: cefTRIAXone 2 GM in Sodium Chloride 0.9% 100 ML IV ONE (17:45)
[2024-06-03] MEDS: Albuterol/Ipratropium 3.0-0.5 MG/3 ML Neb Soln NEB ONE ×2 (18:29→20:37)
[2024-06-03] MEDS: methylPREDNISolone Sodium Succinate 125 MG/2 ML SDV IVPUSH ONE (19:56)
[2024-06-03] MEDS: Levofloxacin 750 MG Tab PO SCH (19:56)
== END 2024-06-03 21:58 | disposition home or self-care (01) ==
LOC: JD.ED 14:15
DX: J44.1 Chronic obstructive pulmonary disease with (acute) exacerbation (principal); I10 Essential (primary) hypertension; E78.00 Pure hypercholesterolemia, unspecified; E11.9 Type 2 diabetes mellitus without complications; Z86.16 Personal history of COVID-19; Z79.899 Other long term (current) drug therapy; Z79.82 Long term (current) use of aspirin; Z88.8 Allergy status to other drugs, medicaments and biological substances
CPT/HCPCS: 0241U; 36415; 71045; 80053; 83605; 83735; 83880; 84484; 85025; 85379; 86140; 87040; 93005; 94640; 96361; 96365; 96366; 96368; 96375; 99285; A9270; J0696; J2919; J3480; J3490; J7120; J7620-GY

== ENCOUNTER 2025-02-28 06:28 | Emergency (ER) | payer BC ==
[2025-02-28 06:46] VITALS: BP 156/98; PULSE 80
[2025-02-28] MEDS ORDERED: Sodium Chloride 0.9% 10 ML Syringe FLUSH PRN (06:57)
[2025-02-28] MEDS: methylPREDNISolone Sodium Succinate 125 MG/2 ML SDV IVPUSH ONE (07:08)
[2025-02-28] MEDS: Albuterol/Ipratropium 3.0-0.5 MG/3 ML Neb Soln NEB ONE ×2 (07:09→08:43)
[2025-02-28 07:10] LABS: BASOPHILS ABSOLUTE AUTO 0.1 K/mm3 (0.0-0.2); EOSINOPHILS ABSOLUTE AUTO 0.7 K/mm3 (0.0-0.4); EOSINOPHILS PERCENT AUTO 6.8 % (0.0-6.0); HEMATOCRIT 55.6 % (42.0-52.0); HEMOGLOBIN 17.6 gm/dl (14.0-18.0); IMMATURE GRAN ABSOLUTE AUTO 0.03 K/mm3 (0.00-0.05); IMMATURE GRAN PERCENT AUTO 0.3 % (0.0-0.4); LYMPHOCYTES PERCENT AUTO 19.9 % (24.0-44.0); MEAN CORPUSCULAR HEMOGLOBIN 28.1 pg (28.0-32.0); MEAN CORPUSCULAR HGB CONC 31.7 g/dl (32.0-36.0); MEAN PLATELET VOLUME 9.8 fl (9.4-12.4); MONOCYTES ABSOLUTE AUTO 0.5 K/mm3 (0.0-0.8); MONOCYTES PERCENT AUTO 5.1 % (0.0-8.0); NEUTROPHILS ABSOLUTE AUTO 6.6 K/mm3 (1.8-7.7); NEUTROPHILS PERCENT AUTO 66.9 % (41.0-71.0); PLATELET COUNT,PLT 250 K/mm3 (150-400); RED BLOOD CELL COUNT 6.27 M/mm3 (4.52-5.90); WHITE BLOOD CELL COUNT,WBC 9.85 K/mm3 (3.9-11.3)
[2025-02-28 07:14] LABS: MEAN CORPUSCULAR VOLUME 88.7 fl (83.0-99.0)
[2025-02-28 07:21] LABS: A/G RATIO 1.1 (1-2); ALANINE AMINOTRANSFERASE,ALT 17 U/L (16-63); ALBUMIN 3.9 g/dl (3.4-5.0); ALKALINE PHOSPHATASE 93 U/L (46-116); ANION GAP 15.3 (5-15); ASPARTATE AMNIOTRANSFERASE,AST 14 U/L (15-37); BILIRUBIN TOTAL 0.8 mg/dL (0.2-1.0); BLOOD UREA NITROGEN,BUN 10 mg/dL (7-18); CALCIUM 9.4 mg/dL (8.5-10.1); CARBON DIOXIDE,CO2 28 mEq/L (21-32); CHLORIDE,CL 102 mEq/L (98-107); EST CRCL DRUG DOSING (CG) 84.48 mL/min; ESTIMATED GFR 83 mL/min (>60); GLUCOSE RANDOM 161 mg/dL (70-99); POTASSIUM,K 4.3 mEq/L (3.5-5.1); PROTEIN TOTAL,TP 7.5 g/dl (6.4-8.2); SODIUM,NA 141 mEq/L (136-145)
[2025-02-28 07:28] LABS: TROPONIN I HIGH SENSITIVITY < 4 pg/mL (<=76)
== END 2025-02-28 09:14 | disposition home or self-care (01) ==
LOC: JD.ED 06:28
DX: J44.1 Chronic obstructive pulmonary disease with (acute) exacerbation (principal); I10 Essential (primary) hypertension; E78.00 Pure hypercholesterolemia, unspecified; M19.90 Unspecified osteoarthritis, unspecified site; E11.9 Type 2 diabetes mellitus without complications; F17.200 Nicotine dependence, unspecified, uncomplicated; Z86.16 Personal history of COVID-19; Z88.8 Allergy status to other drugs, medicaments and biological substances; Z79.82 Long term (current) use of aspirin; Z79.84 Long term (current) use of oral hypoglycemic drugs; Z79.51 Long term (current) use of inhaled steroids; Z79.899 Other long term (current) drug therapy
CPT/HCPCS: 36415; 71046; 80053; 83735; 84484; 85025; 93005; 94640; 96374; 99285; J2919; J7620; 93010; 99284; A9270-GY

== ENCOUNTER 2025-03-10 03:52 | Emergency (ER) | payer BC ==
[2025-03-10] MEDS: Albuterol 0.083% 2.5 MG/3 ML Neb Soln NEB ONE ×2 (04:27→05:39)
[2025-03-10 04:35] LABS: BASOPHILS ABSOLUTE AUTO 0.2 K/mm3 (0.0-0.2); BASOPHILS PERCENT AUTO 1.2 % (0.0-1.0); EOSINOPHILS ABSOLUTE AUTO 1.2 K/mm3 (0.0-0.4); EOSINOPHILS PERCENT AUTO 8.3 % (0.0-6.0); HEMATOCRIT 55.8 % (42.0-52.0); HEMOGLOBIN 17.8 gm/dl (14.0-18.0); IMMATURE GRAN ABSOLUTE AUTO 0.06 K/mm3 (0.00-0.05); IMMATURE GRAN PERCENT AUTO 0.4 % (0.0-0.4); LYMPHOCYTES ABSOLUTE AUTO 2.3 K/mm3 (1.0-4.8); LYMPHOCYTES PERCENT AUTO 15.9 % (24.0-44.0); MEAN CORPUSCULAR HEMOGLOBIN 28.4 pg (28.0-32.0); MEAN CORPUSCULAR HGB CONC 31.9 g/dl (32.0-36.0); MEAN CORPUSCULAR VOLUME 89.1 fl (83.0-99.0); MEAN PLATELET VOLUME 9.7 fl (9.4-12.4); MONOCYTES ABSOLUTE AUTO 0.8 K/mm3 (0.0-0.8); MONOCYTES PERCENT AUTO 5.3 % (0.0-8.0); NEUTROPHILS ABSOLUTE AUTO 9.8 K/mm3 (1.8-7.7); NEUTROPHILS PERCENT AUTO 68.9 % (41.0-71.0); PLATELET COUNT,PLT 280 K/mm3 (150-400); RED BLOOD CELL COUNT 6.26 M/mm3 (4.52-5.90); WHITE BLOOD CELL COUNT,WBC 14.19 K/mm3 (3.9-11.3)
[2025-03-10 04:56] LABS: A/G RATIO 1.1 (1-2); ALBUMIN 3.8 g/dl (3.4-5.0); ANION GAP 12.7 (5-15); BILIRUBIN TOTAL 0.8 mg/dL (0.2-1.0); BUN/CREATININE RATIO 14.5 (14-18); C-REACTIVE PROTEIN 0.66 mg/dL (<0.30); CALCIUM 8.8 mg/dL (8.5-10.1); CREATININE 1.1 mg/dL (0.7-1.3); EST CRCL DRUG DOSING (CG) 68.21 mL/min; POTASSIUM,K 4.7 mEq/L (3.5-5.1); PROTEIN TOTAL,TP 7.3 g/dl (6.4-8.2)
[2025-03-10] MEDS: Albuterol/Ipratropium 3.0-0.5 MG/3 ML Neb Soln NEB ONE ×2 (05:01→06:16)
[2025-03-10] MEDS: methylPREDNISolone Sodium Succinate 125 MG/2 ML SDV IVPUSH ONE (05:18)
[2025-03-10] MEDS: Levofloxacin 750 MG Tab PO ONE (07:36)
[2025-03-10 10:19] VITALS: BP 123/61; PULSE 89
== END 2025-03-10 07:52 | disposition home or self-care (01) ==
LOC: JD.ED 03:52
DX: J44.1 Chronic obstructive pulmonary disease with (acute) exacerbation (principal); E11.9 Type 2 diabetes mellitus without complications; I10 Essential (primary) hypertension; E78.00 Pure hypercholesterolemia, unspecified; Z86.16 Personal history of COVID-19; Z87.891 Personal history of nicotine dependence; Z79.84 Long term (current) use of oral hypoglycemic drugs; Z79.899 Other long term (current) drug therapy; Z79.82 Long term (current) use of aspirin
CPT/HCPCS: 36415; 71045; 80053; 85025; 86140; 87635; 94640; 96374; 99285; A9270; J2919; J7613; J7620; 99284; U0002

== ENCOUNTER 2025-04-11 22:31 | Inpatient (IN) | payer BC ==
[2025-04-11] MEDS: methylPREDNISolone Sodium Succinate 125 MG/2 ML SDV IVPUSH ONE (23:06)
[2025-04-11] MEDS ORDERED: Sodium Chloride 0.9% 10 ML Syringe FLUSH PRN (23:12)
[2025-04-11 23:22] LABS: BASOPHILS ABSOLUTE AUTO 0.1 K/mm3 (0.0-0.2); BASOPHILS PERCENT AUTO 0.7 % (0.0-1.0); EOSINOPHILS ABSOLUTE AUTO 0.5 K/mm3 (0.0-0.4); EOSINOPHILS PERCENT AUTO 5.3 % (0.0-6.0); IMMATURE GRAN ABSOLUTE AUTO 0.04 K/mm3 (0.00-0.05); IMMATURE GRAN PERCENT AUTO 0.4 % (0.0-0.4); LYMPHOCYTES ABSOLUTE AUTO 0.8 K/mm3 (1.0-4.8); LYMPHOCYTES PERCENT AUTO 8.6 % (24.0-44.0); MEAN PLATELET VOLUME 9.6 fl (9.4-12.4); MONOCYTES ABSOLUTE AUTO 0.8 K/mm3 (0.0-0.8); MONOCYTES PERCENT AUTO 8.0 % (0.0-8.0); NEUTROPHILS ABSOLUTE AUTO 7.3 K/mm3 (1.8-7.7); NEUTROPHILS PERCENT AUTO 77.0 % (41.0-71.0); NRBC ABSOLUTE 0.00 (0.00-0.02); NRBC PERCENT 0.0 % (0.0-0.2); PLATELET COUNT,PLT 226 K/mm3 (150-400); RED BLOOD CELL COUNT 5.54 M/mm3 (4.52-5.90); WHITE BLOOD CELL COUNT,WBC 9.43 K/mm3 (3.9-11.3)
[2025-04-11] MEDS: Alum Hydrox/Mag Hydrox/Simeth 30 ML, Lidocaine 2% 15 ML PO ONE (23:35)
[2025-04-11 23:52] LABS: A/G RATIO 0.9 (1-2); ALANINE AMINOTRANSFERASE,ALT 53.0 U/L (16-63); ASPARTATE AMNIOTRANSFERASE,AST 52.0 U/L (15-37); BILIRUBIN TOTAL 0.7 mg/dL (0.2-1.0); BLOOD UREA NITROGEN,BUN 9.0 mg/dL (7-18); CARBON DIOXIDE,CO2 33.0 mEq/L (21-32); CHLORIDE,CL 100.0 mEq/L (98-107); CREATININE 0.9 mg/dL (0.7-1.3); EST CRCL DRUG DOSING (CG) 83.36 mL/min; ESTIMATED GFR 94.0 mL/min (>60); GLUCOSE RANDOM 223.0 mg/dL (70-99); POTASSIUM,K 4.1 mEq/L (3.5-5.1); PROTEIN TOTAL,TP 6.7 g/dl (6.4-8.2); SODIUM,NA 136.0 mEq/L (136-145); TROPONIN I HIGH SENSITIVITY 4.0 pg/mL (<=76)
[2025-04-12 00:18] LABS: CORONAVIRUS COVID-19 NAA NEGATIVE (NEGATIVE); INFLUENZA A NAA NEGATIVE (NEGATIVE); RESPIRATORY SYNCYTIAL VIR NAA NEGATIVE (NEGATIVE)
[2025-04-12] MEDS: Albuterol 0.083% 2.5 MG/3 ML Neb Soln NEB ONE (01:43)
[2025-04-12] MEDS: Albuterol 0.083% 2.5 MG/3 ML Neb Soln NEB SCH (05:11)
[2025-04-12] MEDS ORDERED: Albuterol 0.021% 0.63 MG/3 ML Neb Soln NEB PRN (08:02)
[2025-04-12] MEDS: methylPREDNISolone Sodium Succinate 125 MG/2 ML SDV IVPUSH ONE (11:11)
[2025-04-12 13:36] VITALS: BP 139/62; PULSE 90
== END 2025-04-12 13:10 | disposition left against medical advice (07) | DRG 140 ==
LOC: JD.ED 22:31 → JD.MS 04-12 01:51
PROVIDERS: ADMIT Student in an Organized Health Care Education/Training Program; ATTEND Student in an Organized Health Care Education/Training Program
DX: J44.1 Chronic obstructive pulmonary disease with (acute) exacerbation (principal); D75.1 Secondary polycythemia; H54.7 Unspecified visual loss; E78.00 Pure hypercholesterolemia, unspecified; I10 Essential (primary) hypertension; K59.09 Other constipation; N40.0 Benign prostatic hyperplasia without lower urinary tract symptoms; M19.90 Unspecified osteoarthritis, unspecified site; E11.9 Type 2 diabetes mellitus without complications; Z86.16 Personal history of COVID-19; Z98.890 Other specified postprocedural states; Z88.8 Allergy status to other drugs, medicaments and biological substances; Z79.899 Other long term (current) drug therapy; Z79.82 Long term (current) use of aspirin; Z79.84 Long term (current) use of oral hypoglycemic drugs; Z72.0 Tobacco use; Z79.52 Long term (current) use of systemic steroids; Z99.81 Dependence on supplemental oxygen
CPT/HCPCS: 36415; 71045; 71045-26; 80053; 83690; 83880; 84484; 85025; 87637; 93005; 93010; 94640; 94761; 96374; 99231; 99285; 99285-25; A9270-GY; J2919

== ENCOUNTER 2025-06-15 23:04 | Emergency (ER) | payer BC ==
[2025-06-15 23:22] VITALS: PULSE 99
[2025-06-15] MEDS ORDERED: methylPREDNISolone Sodium Succinate 2 GM Vial IV ONE (23:26)
[2025-06-15 23:37] LABS: BASOPHILS PERCENT AUTO 0.9 % (0.0-1.0); EOSINOPHILS PERCENT AUTO 8.0 % (0.0-6.0); IMMATURE GRAN PERCENT AUTO 0.3 % (0.0-0.4); LYMPHOCYTES PERCENT AUTO 23.7 % (24.0-44.0); MEAN PLATELET VOLUME 9.6 fl (9.4-12.4); MONOCYTES PERCENT AUTO 8.7 % (0.0-8.0); NEUTROPHILS PERCENT AUTO 58.4 % (41.0-71.0); NRBC PERCENT 0.0 % (0.0-0.2); PLATELET COUNT,PLT 257 K/mm3 (150-400); RED BLOOD CELL COUNT 5.81 M/mm3 (4.52-5.90); WHITE BLOOD CELL COUNT,WBC 9.29 K/mm3 (3.9-11.3)
[2025-06-15 23:38] LABS: BASOPHILS ABSOLUTE AUTO 0.1 K/mm3 (0.0-0.2); EOSINOPHILS ABSOLUTE AUTO 0.7 K/mm3 (0.0-0.4); IMMATURE GRAN ABSOLUTE AUTO 0.03 K/mm3 (0.00-0.05); LYMPHOCYTES ABSOLUTE AUTO 2.2 K/mm3 (1.0-4.8); MONOCYTES ABSOLUTE AUTO 0.8 K/mm3 (0.0-0.8); NEUTROPHILS ABSOLUTE AUTO 5.4 K/mm3 (1.8-7.7); NRBC ABSOLUTE 0.00 (0.00-0.02)
[2025-06-15] MEDS: Budesonide 0.5 MG/2 ML Neb Susp NEB ONE (23:42)
[2025-06-15] MEDS: Albuterol 0.042% 1.25 MG/3 ML Neb Soln NEB ONE (23:50)
[2025-06-15] MEDS: methylPREDNISolone Sodium Succinate 125 MG/2 ML SDV IVPUSH SCH (23:59)
[2025-06-16 00:06] LABS: A/G RATIO 1.1 (1-2); ALANINE AMINOTRANSFERASE,ALT 24 U/L (16-63); ASPARTATE AMNIOTRANSFERASE,AST 22 U/L (15-37); BILIRUBIN TOTAL 0.5 mg/dL (0.2-1.0); BLOOD UREA NITROGEN,BUN 8 mg/dL (7-18); CARBON DIOXIDE,CO2 33 mEq/L (21-32); CHLORIDE,CL 103 mEq/L (98-107); CREATININE 0.9 mg/dL (0.7-1.3); EST CRCL DRUG DOSING (CG) 88.62 mL/min; ESTIMATED GFR 94 mL/min (>60); GLUCOSE RANDOM 131 mg/dL (70-99); PROTEIN TOTAL,TP 7.3 g/dl (6.4-8.2); SODIUM,NA 140 mEq/L (136-145)
[2025-06-16 00:07] LABS: POTASSIUM,K 4.1 mEq/L (3.5-5.1); TROPONIN I HIGH SENSITIVITY < 4 pg/mL (<=76)
[2025-06-16 01:12] VITALS: BP 135/85
[2025-06-16] MEDS ORDERED: Albuterol 0.5% 2.5 MG/0.5 ML Neb Soln NEB SCH (06:00)
== END 2025-06-16 01:11 | disposition home or self-care (01) ==
LOC: JD.ED 23:04
DX: J44.1 Chronic obstructive pulmonary disease with (acute) exacerbation (principal); E78.00 Pure hypercholesterolemia, unspecified; I10 Essential (primary) hypertension; E11.9 Type 2 diabetes mellitus without complications; Z88.8 Allergy status to other drugs, medicaments and biological substances; Z79.899 Other long term (current) drug therapy; Z86.16 Personal history of COVID-19
CPT/HCPCS: 36415; 71046; 80053; 83880; 84484; 85025; 85379; 87428; 94640; 96374; 99285; J2919; J7613; J7620; 99284; A9270-GY